=== PATIENT | male | born 1975 | race Caucasian/White ===

== ENCOUNTER 2016-10-31 12:39 | Emergency (ER) | payer BC, OTHER ==
--- NOTE | 2016-10-31 12:52 | EDM.PDOC ---
ED HPI GENERAL MEDICAL PROBLEM - General Stated Complaint: LT SIDE OF RIBS HURTS Time Seen by Provider: 10/31/16 12:41 - History of Present Illness INITIAL COMMENTS - FREE TEXT/NARRATIVE: HISTORY AND PHYSICAL: History of present illness: Patient 40-year-old white male concern of left rib injury does occur when he fell at work he denies other trauma or concern Review of systems: As per history of present illness and below otherwise all systems reviewed and negative. Past medical history: As per history of present illness and as reviewed below otherwise noncontributory. Surgical history: As per history of present illness and as reviewed below otherwise noncontributory. Social history: No reported history of drug or alcohol abuse. Family history: As per history of present illness and as reviewed below otherwise noncontributory. Physical exam: HEENT: Atraumatic, normocephalic, pupils reactive, negative for conjunctival pallor or scleral icterus, mucous membranes moist, throat clear, neck supple, nontender, trachea midline. Lungs: Clear to auscultation, breath sounds equal bilaterally, chest mild tenderness nonlocalized left ribs in the anterior axillary line no crepitation or point tenderness. Heart: S1S2, regular, negative for clicks, rubs, or JVD. Abdomen: Soft, nondistended, nontender. Negative for masses or hepatosplenomegaly. Negative for costovertebral tenderness. Pelvis: Stable nontender. Genitourinary: Deferred. Rectal: Deferred. Extremities: Atraumatic, negative for cords or calf pain. Neurovascular unremarkable. Neuro: Awake, alert, oriented. Cranial nerves II through XII unremarkable. Cerebellum unremarkable. Motor and sensory unremarkable throughout. Exam nonfocal. Diagnostics: X-ray left ribs with chest Therapeutics: None Impression: #1 left rib injury Definitive disposition and diagnosis as appropriate pending reevaluation and review of above. left rib Pain Score (Numeric/FACES): 5 - Related Data Allergies Allergy/AdvReac Type Severity Reaction Status Date / Time No Known Allergies Allergy Verified 10/31/16 12:47 Home Meds: Home Meds Indomethacin [Indocin] 50 mg PO TIDMEALS 10/31/16 [History] Lisinopril 10 mg PO DAILY 10/31/16 [History] Montelukast [Singulair] 10 mg PO BEDTIME 10/31/16 [History] ED ROS GENERAL - Review of Systems Review Of Systems: ROS reveals no pertinent complaints other than HPI. ED EXAM, GENERAL - Physical Exam Exam: See Below (See dictated) Course - Orders/Labs/Meds Orders: Active Orders 24 hr Category Date Time Status Ribs 2V w Chest Lt [CR] Stat Exams 10/31/16 12:49 Ordered Ribs 2V w Chest Rt [CR] Stat Exams 10/31/16 12:44 Stop Req Departure - Departure Time of Disposition: 12:51 Disposition: Home, Self-Care 01 Condition: good Clinical Impression: Rib injury Additional Instructions: The following information is given to patients seen in the emergency department who are being discharged to home. This information is to outline your options for follow-up care. We provide all patients seen in our emergency department with a follow-up referral. The need for follow-up, as well as the timing and circumstances, are variable depending upon the specifics of your emergency department visit. If you don't have a primary care physician on staff, we will provide you with a referral. We always advise you to contact your personal physician following an emergency department visit to inform them of the circumstance of the visit and for follow-up with them and/or the need for any referrals to a consulting specialist. The emergency department will also refer you to a specialist when appropriate. This referral assures that you have the opportunity for followup care with a specialist. All of these measure are taken in an effort to provide you with optimal care, which includes your followup. Under all circumstances we always encourage you to contact your private physician who remains a resource for coordinating your care. When calling for followup care, please make the office aware that this follow-up is from your recent emergency room visit. If for any reason you are refused follow-up, please contact the [facility] emergency department at and asked to speak to the emergency department charge nurse. Ultram as prescribed follow up primary medical doctor one to 2 days return as needed as discussed - My Orders Last 24 Hours: My Active Orders 10/31/16 12:44 Ribs 2V w Chest Rt [CR] Stat 10/31/16 12:49 Ribs 2V w Chest Lt [CR] Stat - Assessment/Plan Last 24 Hours: My Active Orders 10/31/16 12:44 Ribs 2V w Chest Rt [CR] Stat 10/31/16 12:49 Ribs 2V w Chest Lt [CR] Stat
[2016-10-31 12:55] VITALS: BP 141/92
--- NOTE | 2016-10-31 14:56 | CR ---
EXAM DATE: 10/31/16 PATIENT'S AGE: 40 Patient: IVANNA HARRIS Facility: [place], [place] Site . Site : [id number] Study: XRay Chest Left [id number] cxr/ribs-10/31/2016 1:35:18 PM Ordering Physician: Doctor Martin Final Report: INDICATION: Trauma, Fall HISTORY: Fall. Trauma. COMPARISON: None. TECHNIQUE: Frontal chest radiograph, 3 views of the left hemithorax. FINDINGS: Heart size and pulmonary vasculature are normal. The lungs and pleural spaces are clear. There is no pneumothorax. There is no displaced rib fracture or pneumothorax seen. No lytic or blastic bone lesion is identified. IMPRESSION: 1. Clear lungs. 2. No displaced rib fracture or pneumothorax. Dictated by Rich Burk MD @ 10/31/2016 2:12:05 PM Dictated by: Rich Burk MD @ 10/31/2016 14:12:11 (Electronic Signature) Report Signed by Proxy and Original Signed Document filed in the Medical Record. [facility]
== END 2016-10-31 14:26 | disposition home or self-care (01) ==
LOC: MW.ED 12:39
DX: S29.9XXA Unspecified injury of thorax, initial encounter (principal); Z79.899 Other long term (current) drug therapy; W19.XXXA Unspecified fall, initial encounter; Y99.0 Civilian activity done for income or pay
CPT/HCPCS: 71101-26-LT; 71101-LT; 99283